=== PATIENT | female | born 1930 | race Caucasian/White ===

== ENCOUNTER 2016-07-06 09:51 | Inpatient (IN) | payer OTHER ==
[2016-06-28 12:38] VITALS: BMI 30.9
[2016-07-06] MEDS ORDERED: GABAPENTIN 300 MG CAPSULE (FP) ONE (11:22)
[2016-07-06] MEDS ORDERED: oxyCODONE HCL 10 MG SUSTAINED ACTING TABLET ONE (11:22)
[2016-07-06] MEDS ORDERED: CELECOXIB 200 MG CAPSULE ONE (11:22)
[2016-07-06] MEDS ORDERED: BUPIVACAINE HCL/PF (5 MG/ML) 30 ML VIAL IJ ONE (12:20)
[2016-07-06] MEDS ORDERED: DEXAMETHASONE SOD PHOSPHATE/PF 10 MG/ML SDV ONE (12:20)
[2016-07-06] MEDS ORDERED: MIDAZOLAM HCL 2 MG/2 ML SINGLE DOSE VIAL ONE (12:20)
[2016-07-06] MEDS ORDERED: ROPIVICAINE 0.2%/MORPH PF/KETOROLAC - 51ML DISP.SYRINGE IA ONE (12:43)
[2016-07-06] MEDS ORDERED: TRANEXAMIC ACID 1000 MG/10 ML VIAL ONE (12:43)
[2016-07-06] MEDS ORDERED: BUPIVACAINE HCL/PF 0.5% (5MG/ML) 10 ML VIAL ONE (12:58)
[2016-07-06] MEDS ORDERED: oxyCODONE HCL 5 MG TABLET PO PRN (14:42)
[2016-07-06] MEDS ORDERED: ONDANSETRON 4 MG/2 ML VIAL IVPUSH PRN (14:42)
[2016-07-06] MEDS ORDERED: ROPIVACAINE 0.2% 400ML 400 ML ML NR ONE (14:42)
[2016-07-06] MEDS ORDERED: LACTATED RINGERS SOLUTION 1,000 ML IV SCH ×2 (14:45→18:30)
[2016-07-06] MEDS ORDERED: ACETAMINOPHEN INJECTION 100 ML IVPB ONE (16:29)
[2016-07-06] MEDS: ACETAMINOPHEN 1000 MG/100 ML VIAL (NON FORMULARY) IVPB ONE ×2 (16:30→18:22)
[2016-07-06] MEDS ORDERED: TRANEXAMIC ACID 1000 MG/10 ML VIAL IVPB ONE (18:15)
[2016-07-06] MEDS: ACETAMINOPHEN 325 MG TABLET (FP) PO SCH ×2 (18:23→21:33)
[2016-07-06] MEDS ORDERED: CEFAZOLIN 2 GM/D5W 50 ML IVPB SCH (18:30)
--- NOTE | 2016-07-06 20:12 | CONSULT ---
Consult Consult Specialty:: Hospital Medicine Referred by:: Dr. Porter Reason for Consultation:: s/p R-TKR - History of Present Illness Chief Complaint: right knee pain History of Present Illness: This is a 85 y/o woman with a past medical history of Hypertension, Hyperlipidemia, GERD, Knee DJD, Shingles, Uterine Ca, Obesity. s/p R-TKR, POD # 0. At bedside, AAOx3. Patient reports mild pain to right knee. Patient reports having full sensation of lower extremities. Patient reports no void, no flatulence. Patient denies, fever, chills, cough, SOB, CP, AP, N/V/D. 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: No: Alzheimer's, CVA, Dementia, Migraine, Multiple Sclerosis, Peripheral Neuropathy, Parkinson's, Seizure, Syncope, TIA, Vertigo, Other Cardio/Vascular: Yes: HTN, Hyperlipdemia Pulmonary: No: Asthma, Bronchitis, Cancer, COPD, O2 Dependent, Pneumonia, Previously Intubated, Pulmonary Embolus, Pulmonary Fibrosis, Sleep Apnea, Other Gastrointestinal: Yes: GERD Hepatobiliary: No: Cirrhosis, Cholelithiasis, Cholecystitis, Choledocholithiasis , Hepatitis A, Hepatitis B, Hepatitis C, Other Renal/: No: Renal Failure, Renal Inusuff, BPH, Cancer, Hematuria, Hemodialysis , Neurogenic Bladder, Renal Calculi, UTI, Other Reproductive: Yes: Postmenopausal, Other (Uterine Ca) ...: No Heme/Onc: No: Anemia, B12 Deficiency, Bleeding Disorder, Cancer, Current Chemotherapy, Current Radiation Therapy, Hemochromatosis, Hypercoaguable State, Myeloproliferative Synd, Sickle Cell Disease, Sickle Cell Trait, Thrombocytopenia, Other Infectious Disease: Yes: Herpes Zoster Psych: No: Addictions, Anxiety, Bipolar, Depression, Panic, Psychosis, Schizophrenia, Other Rheumatology: No: Fibromyalgia, Gout, Lupus, Rheumatoid Arthritis, Sarcoidosis, Vasculitis, Other ENT: No: Allergic Rhinitis, Sinusitis, Other Endocrine: No: Avoyelles's Disease, Florin's Disease, Diabetes Insipidus, Diabetes Mellitus, Hyperparathyroidism, Hyperthyroidism, Hypothyroidism, Osteopenia, SIADH, Other Dermatology: No: Basal Cell, Cellulitis, Eczema, Melanoma, Psoriasis, Squamous Cell, Other - Past Surgical History Past Surgical History: Yes: Arthrosocopy (left knee), Hysterectomy - Alcohol/Substance Use Hx Alcohol Use: Yes ("NOW AND THEN") History of Substance Use: reports: None - Smoking History Smoking history: Never smoked Have you smoked in the past 12 months: No - Social History Usual Living Arrangement: With Spouse ADL: Independent History of Recent Travel: No Home Medications - Allergies Allergies/Adverse Reactions: Allergies Allergy/AdvReac Type Severity Reaction Status Date / Time No Known Drug Allergies Allergy Verified 06/28/16 12:12 - Home Medications Home Medications: Ambulatory Orders Amlodipine Besylate 10 mg PO DAILY 06/28/16 Aspirin [Ecotrin] 81 mg PO DAILY 06/28/16 Gluc Jackson/Chondro Jackson A/Vit C/Mn [Glucosamine 1,500 Complex Cp] 1 each PO DAILY Lisinopril [Prinivil -] 40 mg PO DAILY 06/28/16 Metoprolol Succinate [Toprol Xl] 50 mg PO DAILY 06/28/16 Family Disease History - Family Disease History Family Disease History: CA: Mother (Bone), Other: Father (Sepsis) Review of Systems - Review of Systems Musculoskeletal: reports: Extremity Pain (right knee) Physical Exam Vital Signs: Vital Signs Temperature 97.6 F 07/06/16 17:49 Pulse Rate 61 07/06/16 17:49 Respiratory Rate 20 07/06/16 19:55 Blood Pressure 117/63 07/06/16 17:49 O2 Sat by Pulse Oximetry (%) 96 07/06/16 19:55 Constitutional: Yes: Well Nourished, No Distress, Calm, Obese Eyes: Yes: WNL, Conjunctiva Clear, PERRL HENT: Yes: WNL, Atraumatic, Normocephalic Neck: Yes: WNL, Supple, Trachea Midline Cardiovascular: Yes: WNL, Regular Rate and Rhythm, S1, S2 Respiratory: Yes: WNL, Regular, CTA Bilaterally Gastrointestinal: Yes: Normal Bowel Sounds, Soft, Abdomen, Obese ...Rectal Exam: Yes: Deferred Renal/: Yes: WNL Breast(s): Yes: WNL Musculoskeletal: Yes: Joint Swelling (right knee), Other Extremities: Yes: WNL Edema: No Peripheral Pulses WNL: Yes Wound/Incision: Yes: Dressing Dry and Intact Neurological: Yes: WNL, Alert, Oriented, Cran Nerves II-XII Intact ...Motor Strength: LUE, LLE, RUE Psychiatric: Yes: WNL, Alert, Oriented Problem List - Problems (1) Status post right knee replacement Code(s): Z96.651 - PRESENCE OF RIGHT ARTIFICIAL KNEE JOINT (2) HTN (hypertension) Code(s): I10 - ESSENTIAL (PRIMARY) HYPERTENSION (3) HLD (hyperlipidemia) Code(s): E78.5 - HYPERLIPIDEMIA, UNSPECIFIED (4) GERD (gastroesophageal reflux disease) Code(s): K21.9 - GASTRO-ESOPHAGEAL REFLUX DISEASE WITHOUT ESOPHAGITIS (5) DJD (degenerative joint disease) of knee Code(s): M17.10 - UNILATERAL PRIMARY OSTEOARTHRITIS, UNSPECIFIED KNEE (6) History of shingles Code(s): Z86.19 - PERSONAL HISTORY OF OTHER INFECTIOUS AND PARASITIC DISEASES (7) Obesity (BMI 30.0-34.9) Code(s): E66.9 - OBESITY, UNSPECIFIED (8) History of uterine cancer Code(s): Z85.42 - PERSONAL HISTORY OF MALIGNANT NEOPLASM OF OTH PRT UTERUS (9) DVT prophylaxis Code(s): OUE7168 - Assessment/Plan This is a 85 y/o woman s/p R-TKR, POD #0. Plan: 1. Continue Ortho Regimen 2. HTN: Monitor BP, continue home meds, monitor renal function 3. HLD: Continue Statin 4. GERD: Continue PPI 5. PT 6. Monitor CBC, BMP 7. Continue DVT/PPI prophylaxis 8. Spirometry Visit type - Emergency Visit Emergency Visit: No - New Patient This patient is new to me today: Yes Date on this admission: 07/06/16 - Critical Care Critical Care patient: No
[2016-07-06] MEDS: ASCORBIC ACID 500 MG TABLET (FP) PO SCH (21:31)
[2016-07-06] MEDS: CEFAZOLIN 2 GM/D5W 50 ML IVPB SCH (21:31)
[2016-07-06] MEDS: FERROUS SO4 325 MG TABLET (FP) PO SCH (21:31)
[2016-07-06] MEDS ORDERED: oxyCODONE HCL 10 MG SUSTAINED ACTING TABLET PO SCH (22:00)
[2016-07-07] MEDS: ACETAMINOPHEN 325 MG TABLET (FP) PO SCH ×4 (02:23→21:28)
[2016-07-07] MEDS: CEFAZOLIN 2 GM/D5W 50 ML IVPB SCH (06:02)
[2016-07-07] MEDS: ASPIRIN 325 MG TABLET PO SCH ×2 (08:33→21:28)
[2016-07-07 09:04] LABS: ANION GAP 10 (8-16); CALCIUM 9.9 mg/dl (8.4-10.2); CO2 23 mmol/L (22-28); CREATININE 0.6 mg/dl (0.6-1.3); GLUCOSE,RANDOM 148 mg/dl (74-106)
[2016-07-07] MEDS: FERROUS SO4 325 MG TABLET (FP) PO SCH ×2 (10:01→21:28)
[2016-07-07] MEDS: CELECOXIB 200 MG CAPSULE PO SCH (10:01)
[2016-07-07] MEDS: ASCORBIC ACID 500 MG TABLET (FP) PO SCH ×2 (10:02→21:28)
[2016-07-07] MEDS: LISINOPRIL 20 MG TABLET (FP) PO SCH (10:02)
[2016-07-07] MEDS: METOPROLOL TARTRATE 50 MG TABLET (FP) PO SCH (10:30)
[2016-07-07 11:20] LABS: MCHC 34.4 g/dl (32.0-36.0); MEAN CELL VOLUME 93.1 fl (80-96); PLATELET COUNT 225 K/MM3 (134-434); RDW 13.2 % (11.6-15.6); WHITE BLOOD COUNT 17.3 K/mm3 (4.0-10.8)
--- NOTE | 2016-07-07 13:14 | PN ---
Physical Exam: SUBJECTIVE: Patient seen and examined, reports feeling well, reports minimal pain to the right lower extremity, denies any paresthesia to the extremity, denies any chest pain or shortness of breath. OBJECTIVE:This is a 85 y/o woman with a past medical history of Hypertension, Hyperlipidemia, GERD, Knee DJD, Shingles, Uterine Ca, Obesity. s/p R-TKR, POD # 1 (Bavaro). Vital Signs Period Temp Pulse Resp BP Sys/Mitchell Pulse Ox Last 24 Hr 97 F-98 F 56-68 9-20 99-124/52-90 95-98 GENERAL: The patient is obese, awake, alert, and fully oriented, in no acute distress. HEAD: Normal with no signs of trauma. EYES: PERRL, extraocular movements intact, sclera anicteric, conjunctiva clear. No ptosis. ENT: Ears normal, nares patent, oropharynx clear without exudates, moist mucous membranes. NECK: Trachea midline, full range of motion, supple. LUNGS: Breath sounds equal, clear to auscultation bilaterally, no wheezes, no crackles, no accessory muscle use. HEART: Regular rate and rhythm, S1, S2 without murmur, rub or gallop. ABDOMEN: Soft, nontender, nondistended, normoactive bowel sounds, no guarding, no rebound, no hepatosplenomegaly, no masses. EXTREMITIES: 2+ pulses, warm, well-perfused, no edema. RIGHT LOWER EXTREMITY: dressing to anterior knee, CDI, less than 3 second capillary refill, +3 pedal pulse NEUROLOGICAL: Cranial nerves II through XII grossly intact. Normal speech, gait not observed. PSYCH: Normal mood, normal affect. SKIN: Warm, dry, normal turgor, no rashes or lesions noted Laboratory Results - last 24 hr 07/07/16 07/07/16 06:00 08:30 WBC 17.3 H D RBC 3.85 Hgb 12.3 D Hct 35.9 MCV 93.1 MCHC 34.4 RDW 13.2 Plt Count 225 MPV 10.0 Sodium 138 Potassium 4.2 Chloride 105 Carbon Dioxide 23 Anion Gap 10 BUN 16 Creatinine 0.6 Random Glucose 148 H D Calcium 9.9 Active Medications Generic Name Dose Route Start Last Admin Trade Name Freq PRN Reason Stop Dose Admin Acetaminophen 650 mg 07/06/16 14:45 07/07/16 08:33 Tylenol - PO 07/09/16 14:44 650 mg Q6H ROSALBA Administration Ascorbic Acid 500 mg 07/06/16 22:00 07/07/16 10:02 Vitamin C - PO 500 mg BID ROSALBA Administration Aspirin 325 mg 07/07/16 08:00 07/07/16 08:33 Asa - PO 325 mg BID ROSALBA Administration Celecoxib 200 mg 07/07/16 10:00 07/07/16 10:01 Celebrex - PO 200 mg DAILY ROSALBA Administration Fentanyl 50 mcg 07/06/16 14:42 Sublimaze Injection - IVPUSH 07/09/16 14:43 [id number] PRN PAIN Ferrous Sulfate 325 mg 07/06/16 22:00 07/07/16 10:01 Feosol - PO 325 mg BID ROSALBA Administration Lactated Ringer's 1,000 mls @ 125 mls/hr 07/06/16 14:45 07/06/16 18:22 Lactated Ringers Solution IV Not Given ASDIR ROSALBA Lactated Ringer's 1,000 mls @ 125 mls/hr 07/06/16 18:30 07/06/16 18:44 Lactated Ringers Solution IV Not Given ASDIR ROSALBA Lisinopril 40 mg 07/07/16 10:00 07/07/16 10:02 Prinivil PO 40 mg DAILY ROSALBA Administration Metoprolol Tartrate 50 mg 07/07/16 10:00 07/07/16 10:30 Lopressor - PO 50 mg DAILY ROSALBA Administration Oxycodone HCl 5 mg 07/06/16 14:42 Roxicodone - PO 07/09/16 14:42 Q4H PRN PAIN Oxycodone HCl 10 mg 07/06/16 14:42 Roxicodone - PO 07/09/16 14:43 Q4H PRN PAIN ASSESSMENT/PLAN: 1) MS: s/p right TKR, POD #1 - pt as per ortho - prn pain medication - incentive spriometer 2) Card hypertension - b/p at goal, continue lopressor and lisinopril hyperlipidemia - continue statin 3) GI GERD - start protonix f/e/n - low sodium diet ppx - asa - scd/marcy - pt Will follow thank you for this consultative opportunity.
[2016-07-07] MEDS: PANTOPRAZOLE 40 MG TABLET (FP) PO SCH (14:21)
[2016-07-07] MEDS: oxyCODONE HCL 5 MG TABLET PO PRN (21:28)
[2016-07-08] MEDS: ACETAMINOPHEN 325 MG TABLET (FP) PO SCH ×3 (03:01→14:17)
[2016-07-08 06:22] VITALS: PULSE 68
[2016-07-08 06:28] VITALS: BP 111/57; TEMP 97.9
[2016-07-08] MEDS: oxyCODONE HCL 5 MG TABLET PO PRN (06:46)
[2016-07-08 08:08] LABS: MCH 31.3 pg (25.7-33.7); MCHC 33.5 g/dl (32.0-36.0); MEAN CELL VOLUME 93.4 fl (80-96); MEAN PLT VOLUME 9.4 fl (7.5-11.1); PLATELET COUNT 185 K/MM3 (134-434); RDW 13.4 % (11.6-15.6); WHITE BLOOD COUNT 9.7 K/mm3 (4.0-10.8)
[2016-07-08] MEDS: ASCORBIC ACID 500 MG TABLET (FP) PO SCH (09:46)
[2016-07-08] MEDS: LISINOPRIL 20 MG TABLET (FP) PO SCH (09:46)
[2016-07-08] MEDS: ASPIRIN 325 MG TABLET PO SCH (09:46)
[2016-07-08] MEDS: FERROUS SO4 325 MG TABLET (FP) PO SCH (09:47)
[2016-07-08] MEDS: PANTOPRAZOLE 40 MG TABLET (FP) PO SCH (09:47)
[2016-07-08] MEDS: CELECOXIB 200 MG CAPSULE PO SCH (09:47)
[2016-07-08] MEDS: METOPROLOL TARTRATE 50 MG TABLET (FP) PO SCH (09:47)
--- NOTE | 2016-07-08 12:06 | OP ---
DATE OF OPERATION: 07/06/2016 SURGEON: Quinten Krishna MD ANESTHESIOLOGIST: Rolf Pastor MD and Danyell Ba MD ANESTHESIA: Spinal with an adductor canal block with an indwelling catheter. PREOPERATIVE DIAGNOSIS: Severe right knee osteoarthritis with varus deformity, flexion contracture. 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 BLOOD LOSS: Approximately 150 mL. Cefzil was given preoperatively for prophylaxis against infection. An additional 1 g of Cefzil was given at the time of wound closure, 1 g of tranexamic acid was given preoperatively. A second gram was given at the time of wound closure. A third was instilled into the wound. HARDWARE USED: [employer] PFC sigma PCL retaining knee with a size 4 narrow PressFit femur, size 3 cemented tibial component, and 10-mm polyethylene tray. One bag of bone cement was used. Patella was left on the surface. Mixture of Duramorph, Toradol, and bupivacaine were instilled into the knee at the conclusion of the procedure. INDICATIONS: The patient is an 85-year-old female with longstanding history of knee osteoarthritis who has had extensive conservative treatment and has reached the point where her quality of life is quite poor. She is having severe discomfort with activity and pain and severe discomfort with activities of daily living. She cannot walk any meaningful distance. We had discussed treatment options including additional conservative treatment such as injection therapy, medications, use of a cane or walker, physical therapy versus surgical intervention. After a thorough discussion with the patient, she wished to proceed with knee replacement surgery. We explained the risks to include, but not be limited to infection, stiffness, continued pain, chance that should she develop an infection it would be a complete disaster, necessitating removing her knee replacement and placing her on long-term IV antibiotics and the chance that should she have an infection that is not curable, she could be left on chronic antibiotic suppression or should she develop a life-threatening infection may require an amputation, the chance that she could have a blood clot that could spread from her legs to her lungs and even cause . This can occur despite DVT prophylaxis with medication, ambulation, and sequential compression devices. The chance that her knee replacement may loosen up in its intended lifespan and may need to be redone was discussed. Patient understands this. She has identified her right knee as the operative site, which was confirmed by the operating room staff. She agrees to proceed with the planned procedure. DESCRIPTION OF PROCEDURE: After administration of regional anesthetic by the anesthesiologist in the preoperative holding area, the patient was brought to the operating room where spinal anesthetic was administered by the anesthesiologist. The patient's right leg was then prepped and draped in the usual sterile manner. Tourniquet was applied, but prior to sterile prepping and draping, but was not used during the procedure. Standard midline incision approximately 15 cm in length was made, starting just superior to the superior pole of the patella, extending midline and down the anterior aspect of her knee to just past the tibial tubercle. The incision was carried down through the subcutaneous tissues onto the extensor mechanism using the electrocautery device and device to maintain hemostasis throughout the procedure. The extensor mechanism was then entered proximally in the quadriceps tendon at roughly the junction between the middle and medial thirds of the quadriceps tendon. The incision was carried down to the superior pole of the patella, curving medially around the patella, leaving a small cuff of tissue for later repair and reapproximation of the extensor mechanism. The patella was everted. The patient had obvious severe tricompartmental osteoarthritis with severe varus deformity with a medial more severely affected than the lateral. Menisci were removed. ACL was released. PCL was recessed. All osteophytes were removed. Two sets of 4-mm guide pins were then placed in the medial aspect of the proximal tibia and medial aspect of the distal femur, to which the computer array were then attached. The patient's hips were in rotation and bony anatomy was entered into the computer navigation device. She had roughly 15 degree flexion contracture and roughly 9 degrees of varus. The tibia and then the femur were machined to correct the patient's varus deformity and flexion contracture. Trial size 4 narrow femur and size 3 tibia were then impacted in place with a trial 10-mm polyethylene spacer. The patient had full and easy extension, full and easy flexion with balanced flexion and extension gaps with good tracking of the patella with the trial components. The trial components were removed. On bag of [employer] bone cement was mixed in a vacuum mixing bowl and the exposed bony cancellous surfaces were cleaned using jet lavage. The tibial component was pre-coated with bone cement as well as bone cement being finger pressurized into the exposed bony cancellous surfaces, which have been cleaned with the jet lavage. The tibial component was then impacted in place and then the femoral component was then impacted in place and held in extension with 10-mm polyethylene space while the cement had hardened. The knee was then taken through range of motion and had full and easy extension, full and easy flexion with balanced flexion and extension gaps and neutral varus and valgus alignment. The trial components were then removed. The leg was then irrigated with copious amounts of antibiotic normal saline solution. Excess bone cement and bone debris were removed. The final polyethylene liner was then impacted in place and found to have equal patella tracking stability and alignment to that of the trial. Dilute betadine solution was instilled in the wound and allowed to sit for 3 minutes. This was then evacuated and the wound was once again irrigated with copious amounts of antibiotic normal saline solution. The extensor mechanism was then closed with interrupted [id number] No.1 Vicryl sutures followed by a No. Stratafix suture, sutured with the knee in maximal flexion. The aforementioned local was instilled in the knee joint and the subcutaneous tissues were closed with 2-0 Vicryl sutures to reapproximate the skin edges and a running 2-0 Stratafix suture with the knee maximally flexed. Wound was then further closed with Dermabond. After the Dermabond had hardened, Aquacel dressing was then applied. The pin sites were also closed with Dermabond. Thigh-high AZALEA hose stockings were then placed on the patient's leg. She was awoken and transported to the recovery room in stable condition, having tolerated the procedure without incident. During the procedure, the patient had thigh-high AZALEA stockings and sequential compression devices on her nonoperative leg. For DVT prophylaxis we are going to have early ambulation, SCDs, as well as aspirin for 4 weeks for DVT prophylaxis. We are going to try to avoid using a Ayers catheter for fear of causing urinary tract infections and try to present periprosthetic infection. We are going to discontinue prophylactic antibiotics within 24 hours. QUINTEN KRISHNA M.D. [id number]
--- NOTE | 2016-07-11 15:32 | PATH ---
Surgical Pathology Report Patient Name: FLAVIO MO Med. Rec. #: [id number] /Age/Gender: 1930 (Age: 85) / F Account: [id number] Location: [facility] Taken: 07/06/2016 Received: 07/06/2016 Reported: 07/11/2016 Physicians: Jaison Porter M.D. Specimen(s) Received BONE RIGHT KNEE Clinical History Unilateral primary osteoarthritis Final Diagnosis BONE, RIGHT KNEE, TOTAL KNEE REPLACEMENT: DEGENERATIVE JOINT DISEASE. Electronically Signed Lacey Walker M.D. Gross Description Received in formalin labeled "bone right knee," is 11.0 x 9.5 x 1.7 cm aggregate of multiple cortez, irregular portions of bone and soft tissue. The tibial plateau measures 7.8 x 5.4 x 1.7 cm. There are multiple areas of eburnation present, measuring up to 4 cm in greatest dimension. The remaining articular surfaces are cortez-yellow and diffusely granular. The underlying trabecular bone is yellow and hard. Modeling Analyst sections are submitted in one cassette, following decalcification. /07/07/201607/07/2016
== END 2016-07-08 16:56 | disposition home or self-care (01) | DRG 470 ==
LOC: FM/S 09:51
PROVIDERS: ADMIT Orthopaedic Surgery; ATTEND Orthopaedic Surgery
PROC: 0SRC0J9 Replacement of Right Knee Joint with Synthetic Substitute, Cemented, Open Approach (ICD-10-PCS; principal; 2016-07-06 13:59)
DX: M17.11 Unilateral primary osteoarthritis, right knee (principal); I10 Essential (primary) hypertension; E78.5 Hyperlipidemia, unspecified; K21.9 Gastro-esophageal reflux disease without esophagitis; Z85.42 Personal history of malignant neoplasm of other parts of uterus; E66.8 Other obesity; Z68.30 Body mass index [BMI] 30.0-30.9, adult; Z86.19 Personal history of other infectious and parasitic diseases
CPT/HCPCS: 36415; 73560-TC-RT; 80048; 85027; 88304-TC; 88311-TC; 94010; 94760; 97116-GP; 97162; J3490

== ENCOUNTER 2019-01-22 16:34 | Emergency (ER) | payer OTHER ==
[2019-01-22 16:38] VITALS: BP 119/63; PULSE 86; TEMP 97.9; BMI 25.7
--- NOTE | 2019-01-22 17:02 | PDOC ---
History of Present Illness - General Chief Complaint: Pain, Acute Stated Complaint: LEFT UPPER LEG PAIN Time Seen by Provider: 01/22/19 16:39 History Source: Patient Exam Limitations: No Limitations - History of Present Illness Initial Comments: 01/22/19 17:01 88y F presents with R thigh pain. Pt notes that She had a mechanical fall several weeks ago since then she has had intermittent left thigh pain That is typically worse in the morning when she wakes up, During the day the pain seems to go away and she is able to ambulate more easily with her walker. The patient denies any numbness, tingling, hip pain, knee pain, Fever, chills. Pt was evaluated by dr. savage who sent her to the ED for evaluation. PMHx: uterine ca, htn GENERAL: The patient is awake, alert, and fully oriented, Nontoxic - in no acute distress. HEAD: Normocephalic, atraumatic. NECK: Normal range of motion, supple BACK No focal bony tenderness along midline in cervical spine EXTREMITIES: Normal range of motion, no edema. No bruising or focal bony tenderness noted on hips, thighs, knees, normal range of motion in the hips and knees. NEUROLOGICAL: No facial assymetry, Normal speech, PSYCH: Normal mood, normal affect. SKIN: Warm, Dry, normal turgor, Will obtain x-ray to rule out fracture The patient declines any pain medicine so that she took Tylenol about 2 hours ago and has helped her pain. Past History - Past Medical History Allergies/Adverse Reactions: Allergies Allergy/AdvReac Type Severity Reaction Status Date / Time No Known Drug Allergies Allergy Verified 01/22/19 16:35 Home Medications: Ambulatory Orders Amlodipine Besylate 10 mg PO DAILY 06/28/16 Aspirin [Ecotrin] 81 mg PO DAILY 06/28/16 Gluc Jackson/Chondro Jackson A/Vit C/Mn [Glucosamine 1,500 Complex Cp] 1 each PO DAILY Lisinopril [Prinivil -] 40 mg PO DAILY 06/28/16 Metoprolol Succinate [Toprol Xl] 50 mg PO DAILY 06/28/16 Aspirin [ASA -] 325 mg PO DAILY #30 tablet 07/08/16 Aspirin [ASA -] 325 mg PO ONCE #1 tablet 07/08/16 Anemia: No Asthma: No Cancer: Yes (UTERINE CA 1975) Cardiac Disorders: No CVA: No COPD: No CHF: No Dementia: No Diabetes: No GI Disorders: No Disorders: No (INCT) HTN: Yes Hypercholesterolemia: No Liver Disease: No Seizures: No Thyroid Disease: No - Surgical History Abdominal Surgery: No Appendectomy: No Cardiac Surgery: No Cholecystectomy: No Lung Surgery: No Neurologic Surgery: No Orthopedic Surgery: Yes (LEFT LEG SX 1998) - Psycho Social/Smoking Cessation Hx Smoking History: Never smoked Have you smoked in the past 12 months: No Hx Alcohol Use: Yes ("NOW AND THEN") Drug/Substance Use Hx: No Substance Use Type: Alcohol Hx Substance Use Treatment: No *Physical Exam - Vital Signs Last Vital Signs Temp Pulse Resp BP Pulse Ox 97.9 F 86 19 119/63 99 01/22/19 16:34 01/22/19 16:34 01/22/19 16:34 01/22/19 16:34 01/22/19 16:34 Medical Decision Making - Medical Decision Making 01/22/19 17:51 The patient's femur x-ray and left hip and pelvis appear negative on my wet read. Will discharge patient to follow-up with Dr. Savage I discussed the physical exam findings, ancillary test results and final diagnoses with the patient. I answered all of the patient's questions. The patient was satisfied with the care received and felt comfortable with the discharge plan and treatment plan. The patient will call their primary care physician within 24 hours to arrange follow-up and will return to the Emergency Department with any new, persistent or worsening symptoms. Discharge - Discharge Information Problems reviewed: Yes Clinical Impression/Diagnosis: Leg pain, left Condition: Stable Disposition: HOME - Admission No - Follow up/Referral Referrals: Donnie Savage MD [Primary Care Provider] - - Patient Discharge Instructions Patient Printed Discharge Instructions: DI for Leg Pain Additional Instructions: Return to the emergency department immediately with ANY new, persistent or worsening symptoms. Take Tylenol for your pain. You MUST call and follow up with your doctor in 3-4 days for further evaluation of your symptoms. Results were discussed with you. Please make sure your doctor reviews the results of your emergency evaluation. Your Emergency Department visit is not complete without a follow up with your doctor. If you had any xrays during your visit, it was read preliminarily by myself, a Radiologist will review it and if there are any additional findings we will call you. Print Language: SLOVENIAN - Post Discharge Activity
== END 2019-01-22 18:05 | disposition home or self-care (01) ==
LOC: FER 16:34
DX: M79.651 Pain in right thigh (principal); I10 Essential (primary) hypertension; K92.9 Disease of digestive system, unspecified; Z85.42 Personal history of malignant neoplasm of other parts of uterus
CPT/HCPCS: 73523-TC-FY; 73552-TC-LT-FY; 99282-25

== ENCOUNTER 2019-10-16 21:44 | Inpatient (IN) | payer OTHER ==
--- NOTE | 2019-10-16 22:28 | PDOC ---
History of Present Illness - General Chief Complaint: Diarrhea Stated Complaint: "i have diarrhea" Time Seen by Provider: 10/16/19 21:46 - History of Present Illness Initial Comments: 10/16/19 22:31 This 89-year-old woman with a history of HTN/uterine Ca (1975)/L TKR(2016) presents with intermittent, usually postprandial, diarrhea which patient describes as sometimes having red blood (no mucus) within the bowel movement for the last several weeks. Tonight, a few hours prior to presentation, the patient had a very large liquid bowel movement which leaked around the disposable diapers she wears. No red blood or mucus noted tonight. she denies nausea/vomiting. She has had no significant abdominal pain associated with any of the episodes of diarrhea. No fever or chills noted. Patient states that over the last several months, she has had decreased appetite and she is lost approximately 40 pounds over the last year. No previous history of any gastrointestinal issues. She denies ever having colonoscopy. She states that she has been somewhat lightheaded in the mornings for the last several months but this resolves quickly. She denies unusual weakness, chest pain, shortness of breath. 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 Medications as noted below No known drug allergies Non-smoker/small amount of daily wine but no other alcohol use PMD Dr Newby Past History - Medical History Allergies/Adverse Reactions: Allergies Allergy/AdvReac Type Severity Reaction Status Date / Time No Known Drug Allergies Allergy Verified 10/16/19 21:46 Home Medications: Ambulatory Orders Amlodipine Besylate 10 mg PO DAILY 06/28/16 Aspirin [Ecotrin] 81 mg PO DAILY 06/28/16 Lisinopril [Prinivil -] 40 mg PO DAILY 06/28/16 Metoprolol Succinate [Toprol Xl] 50 mg PO DAILY 06/28/16 Anemia: No Asthma: No Cancer: Yes (UTERINE CA 1975) Cardiac Disorders: No CVA: No COPD: No CHF: No Dementia: No Diabetes: No GI Disorders: No Disorders: No (INCT) HTN: Yes Hypercholesterolemia: No Liver Disease: No Seizures: No Thyroid Disease: No - Surgical History Abdominal Surgery: No Appendectomy: No Cardiac Surgery: No Cholecystectomy: No Lung Surgery: No Neurologic Surgery: No Orthopedic Surgery: Yes (LEFT LEG SX 1998) - Psycho-Social/Smoking History Smoking History: Never smoked Have you smoked in the past 12 months: No - Substance Abuse Hx (Audit-C & DAST Scrn) How often the patient has a drink containing alcohol: Never Score: In Men: 4 or > Positive; In Women: 3 or > Positive: 0 Screen Result (Pos requires Nsg. Audit-10AR): Negative Review of Systems - Review of Systems Able to Perform ROS?: Yes Comments:: 12 point review of systems is negative except for what is noted in the history of present illness *Physical Exam - Vital Signs Last Vital Signs Temp Pulse Resp BP Pulse Ox 98.8 F 80 18 127/69 100 10/16/19 21:47 10/16/19 21:47 10/16/19 21:47 10/16/19 21:47 10/16/19 21:47 - Physical Exam GENERAL: Elderly female, alert and oriented x3, in no acute distress HEAD: Normal with no signs of trauma. EYES: PERRLA, EOMI, sclera anicteric, conjunctiva clear. ENT: Ears normal, nares patent, oropharynx clear without exudates. Dry mucous membranes. NECK: Normal range of motion, supple without lymphadenopathy, JVD, or masses. LUNGS: Breath sounds equal, clear to auscultation bilaterally. No wheezes, and no crackles. HEART:Regular rate and rhythm, normal S1 and S2 without murmur, rub or gallop. ABDOMEN:.normal bowel sounds No guarding,tenderness or rebound.No masses No distention. RECTAL: External hemorrhoidal tags; no other perianal abnormalities; no palpable internal masses; small amount of surinder, heme positive stool otherwise empty ampulla EXTREMITIES: Normal range of motion, no edema. No clubbing or cyanosis. No erythema, or tenderness. NEUROLOGICAL: Cranial nerves II through XII grossly intact. Normal speech. No focal neurological deficits. MUSCULOSKELETAL: Back non-tender to palpation, no CVA tenderness SKIN: Warm, Dry, normal turgor, no rashes or lesions noted. ED Treatment Course - LABORATORY CBC & Chemistry Diagram: 10/16/19 22:35 10/16/19 22:27 Medical Decision Making - Medical Decision Making Work-up notable for normal hemoglobin/hematocrit 11.4/34.7 and remainder of the CBC normal. BUN is 23 with a creatinine of 0.6. Electrolytes and LFTs are all within normal limits. Troponin is not elevated at less than 0.03. Twelve-lead electrocardiogram was performed: Normal sinus rhythm at 73 bpm; there is right bundle branch block but no other abnormalities of waveforms. Intervals and axis are normal. No evidence of acute ST or T wave abnormalities. No evidence of acute cardiac arrhythmia. Case discussed with Dr. Alvarenga of GI staff: Patient will be admitted for observation and plan for colonoscopy. Stool sample should be sent for culture and sensitivity. 10/17/19 00:[address] Gleason from [facility]. Patient will be admitted to [facility]. COVID-19 swab performed Portable chest x-ray performed: Preliminary interpretationsmall area of atelectasis right base, no infiltrates, effusion or masses seen, slight flattening of the diaphragm bilaterally, cardiac silhouette appears normal Discharge - Discharge Information Problems reviewed: Yes Clinical Impression/Diagnosis: Lower GI bleed, Chronic diarrhea Condition: Guarded - Admission Yes - Follow up/Referral - Patient Discharge Instructions - Post Discharge Activity
[2019-10-16] MEDS ORDERED: SODIUM CHLORIDE 500 ML IV STA (22:29)
[2019-10-16 22:55] LABS: BASO % 1.1 % (0-2.0); EOS % 4.7 % (0-4.5); HEMATOCRIT 34.7 % (32.4-45.2); HEMOGLOBIN 11.4 GM/dl (10.7-15.3); LYMPH % 11.8 % (8-40); MCH 29.1 pg (25.7-33.7); MCHC 32.9 g/dl (32.0-36.0); MEAN CELL VOLUME 88.5 fl (80-96); MEAN PLT VOLUME 8.7 fl (7.5-11.1); MONO % 9.7 % (3.8-10.2); NEUT % 72.7 % (42.8-82.8); PLATELET COUNT 288 K/MM3 (134-434); RBC 3.92 M/mm3 (3.60-5.2); RDW 14.8 % (11.6-15.6)
[2019-10-16 23:03] LABS: INR 1.01 (0.82-1.09); PROTHROMBIN TIME (PATIENT) 11.3 SEC (10.2-13.0)
[2019-10-16 23:08] LABS: ALBUMIN 4.2 g/dl (3.4-5.0); BILIRUBIN,TOTAL 0.5 mg/dl (0.2-1); CALCIUM 9.9 mg/dl (8.5-10); CREATININE 0.6 mg/dl (0.55-1.3); POTASSIUM 3.9 mmol/L (3.5-5.1); TOT PROT 6.6 g/dl (6.4-8.2)
[2019-10-17] MEDS ORDERED: ACETAMINOPHEN 325 MG TABLET (FP) PO PRN (00:09)
[2019-10-17] MEDS ORDERED: SODIUM CHLORIDE 1,000 ML IV SCH (00:15)
[2019-10-17] MEDS ORDERED: DEXTROSE 5%-NORMAL SALINE 1,000 ML IV SCH (00:15)
[2019-10-17 01:41] VITALS: BMI 26.2
[2019-10-17 07:45] LABS: RBC 3.48 M/mm3 (3.60-5.2)
[2019-10-17 07:48] LABS: BASO % 1.6 % (0-2.0); EOS % 6.3 % (0-4.5); HEMATOCRIT 30.9 % (32.4-45.2); LYMPH % 23.1 % (8-40); MCH 28.8 pg (25.7-33.7); MCHC 32.4 g/dl (32.0-36.0); MEAN CELL VOLUME 88.6 fl (80-96); MEAN PLT VOLUME 8.4 fl (7.5-11.1); PLATELET COUNT 264 K/MM3 (134-434); RDW 14.6 % (11.6-15.6); WHITE BLOOD COUNT 4.4 K/mm3 (4.0-10.8)
[2019-10-17 08:05] LABS: ALBUMIN 3.4 g/dl (3.4-5.0); BILIRUBIN,TOTAL 0.5 mg/dl (0.2-1); CALCIUM 8.9 mg/dl (8.5-10); CREATININE 0.5 mg/dl (0.55-1.3); MAGNESIUM 1.8 mg/dL (1.8-2.4); PHOSPHOROUS 2.8 mg/dl (2.5-4.9); POTASSIUM 3.5 mmol/L (3.5-5.1); TOT PROT 5.6 g/dl (6.4-8.2)
[2019-10-17 08:17] LABS: INR 1.07 (0.82-1.09)
--- NOTE | 2019-10-17 09:06 | PN ---
Progress Note (short form) - Note Progress Note: Patient seen and labs reviewed; consult dictated. Patient is an 89 yo female with a long (>1 year) history of occasional loose stool ?diarrhea. No recent change in weight, appetite and no fever, chills, N/V. Had diarrhea last night after eating pasta with sauce - son/family upset and patient went to ER and was admitted. No stool since admission and has normal lytes/WBC (has mild anemia). Patient currently feels at baseline without diarrhea or abdominal discomfort and wants to eat/go home. Agreeable to outpatient colonoscopy (await BM to send specimen for culture) Will start on regular diet and arrange outpatient followup.
--- NOTE | 2019-10-17 09:50 | CONS ---
DATE OF CONSULTATION: 10/17/2019 I was asked to evaluate this 89-year-old female admitted with diarrhea. The patient is an 89-year-old female with a history of hypertension, uterine cancer and knee replacement surgery. She has had a 1+ year history of intermittent loose bowel movements. She has not had a workup to date and denies any prior history of colonoscopy. She has maintained her appetite and weight over the past 6 to 12 months. Prior to that time she may have had some weight loss. She states that she generally has good control of her bowel movements, although occasionally has loose stools. She denies seeing any blood in the stool. The evening of admission she had eaten pasta with some tomato sauce and had a large liquid bowel movement with some difficulty getting to the bathroom in time with some soiling of the floor. This was quite upsetting to her family as well as the patient and she ultimately went to the emergency room. She described the stool as being slightly orange in color, but not grossly bloody with clots or black tarry appearance. The patient was seen in the emergency room for the aforementioned complaint. Her blood counts included a white count of 6000, hematocrit of 34.7% with an MCV of 88 and a platelet count of 288,000. Her INR was 1.01 and her chemistries are unremarkable. The patient has not had a bowel movement since admission. She has remained with stable vital signs and afebrile. There have been no stool cultures sent due to the lack of a bowel movement. The patient currently denies any abdominal discomfort, nausea, vomiting, cramps, fever or chills. She has not had any recent travel history or antibiotic use. She has no family history of GI illness or malignancy and, as mentioned, she has not had a colonoscopy to date. The patient states she would like to eat and is anxious to go home to care for her 91-year-old . PHYSICAL EXAMINATION: General: She is a well-developed, well-nourished female with pink conjunctivae. No icterus. Lungs: Grossly clear. Cardiac: Regular rate and rhythm. Abdomen: Soft, flat and nontender with normoactive bowel sounds. LABORATORY: Tests are as above. The patient does have stool Hemoccult-positive testing. An 89-year-old female with chronic intermittent loose stool/diarrhea with a more significant episode the evening of admission, currently without any bowel movement since admission and anxious to go home. Will arrange for an outpatient colonoscopy as patient is agreeable to this plan and will advance diet. Stool cultures can be sent if the patient does have a bowel movement prior to discharge. Recommendations will be made based on her outpatient workup. ROBERT MARAVILLA M.D. [id number]
[2019-10-17 10:36] VITALS: BP 133/80; PULSE 74; TEMP 98.1
[2019-10-17] MEDS ORDERED: POTASSIUM CHLORIDE TABS 20 MEQ TABLET.ER (FP) PO ONE (10:50)
--- NOTE | 2019-10-17 11:02 | DS ---
Physical Exam: SUBJECTIVE: Patient seen and examined OBJECTIVE: Vital Signs Period Temp Pulse Resp BP Sys/Mitchell Pulse Ox Last 24 Hr 98.1 F-98.8 F 68-80 18-18 120-133/60-80 97-100 PHYSICAL EXAM GENERAL: The patient is awake, alert, and fully oriented, in no acute distress. HEAD: Normal with no signs of trauma. EYES: PERRL, extraocular movements intact, sclera anicteric, conjunctiva clear. ENT: Ears normal, nares patent, oropharynx clear without exudates, moist mucous membranes. NECK: Trachea midline, full range of motion, supple. LUNGS: Breath sounds equal, clear to auscultation bilaterally, no wheezes, no crackles, no accessory muscle use. HEART: Regular rate and rhythm, S1, S2 without murmur, rub or gallop. ABDOMEN: Soft, nontender, nondistended, normoactive bowel sounds, no guarding, no rebound, no hepatosplenomegaly, no masses. EXTREMITIES: 2+ pulses, warm, well-perfused, no edema. NEUROLOGICAL: no deficits noted. Normal speech, gait not observed. PSYCH: Normal mood, normal affect. SKIN: Warm, dry, normal turgor, no rashes or lesions noted. LABS Laboratory Results - last 24 hr 10/16/19 10/16/19 10/16/19 22:27 22:27 22:27 WBC RBC Hgb Hct MCV MCH MCHC RDW Plt Count MPV Absolute Neuts (auto) Neutrophils % Lymphocytes % Monocytes % Eosinophils % Basophils % PT with INR 11.3 INR 1.01 Sodium 137 Potassium 3.9 Chloride 105 Carbon Dioxide 25 Anion Gap 7 L BUN 23.0 H Creatinine 0.6 Est GFR (CKD-EPI)AfAm 94.32 Est GFR (CKD-EPI)NonAf 81.38 POC Glucometer Random Glucose 102 Calcium 9.9 Phosphorus Magnesium Total Bilirubin 0.5 AST 18 ALT 16 Alkaline Phosphatase 87 Creatine Kinase 39 Troponin I < 0.03 Total Protein 6.6 Albumin 4.2 TSH Stool Occult Blood 10/16/19 10/16/19 10/17/19 22:35 22:35 06:00 WBC 6.0 RBC 3.92 Hgb 11.4 Hct 34.7 MCV 88.5 MCH 29.1 MCHC 32.9 RDW 14.8 D Plt Count 288 MPV 8.7 Absolute Neuts (auto) 4.3 Neutrophils % 72.7 Lymphocytes % 11.8 Monocytes % 9.7 Eosinophils % 4.7 H Basophils % 1.1 PT with INR INR Sodium 137 Potassium 3.5 Chloride 109 H Carbon Dioxide 23 Anion Gap 5 L BUN 13.0 Creatinine 0.5 L Est GFR (CKD-EPI)AfAm 100.15 Est GFR (CKD-EPI)NonAf 86.41 POC Glucometer Random Glucose 88 Calcium 8.9 Phosphorus 2.8 Magnesium 1.8 Total Bilirubin 0.5 AST 17 ALT 12 L Alkaline Phosphatase 70 D Creatine Kinase Troponin I Total Protein 5.6 L Albumin 3.4 TSH 2.33 Stool Occult Blood Positive 10/17/19 10/17/19 10/17/19 06:26 06:55 06:55 WBC 4.4 RBC 3.48 L Hgb 10.0 L Hct 30.9 L MCV 88.6 MCH 28.8 MCHC 32.4 RDW 14.6 Plt Count 264 MPV 8.4 Absolute Neuts (auto) 2.5 Neutrophils % 58.0 Lymphocytes % 23.1 Monocytes % 11.0 H Eosinophils % 6.3 H Basophils % 1.6 PT with INR 12.0 INR 1.07 Sodium Potassium Chloride Carbon Dioxide Anion Gap BUN Creatinine Est GFR (CKD-EPI)AfAm Est GFR (CKD-EPI)NonAf POC Glucometer 85 Random Glucose Calcium Phosphorus Magnesium Total Bilirubin AST ALT Alkaline Phosphatase Creatine Kinase Troponin I Total Protein Albumin TSH Stool Occult Blood HOSPITAL COURSE: Date of Admission:10/17/19 Date of Discharge: 10/17/19 Minutes to complete discharge: 45 Discharge Summary Problems reviewed: Yes Reason For Visit: CHRONIC DIARRHEA, LOWER GI BLEED. Current Active Problems Chronic diarrhea Rectal bleed (chronic) Procedures: Principal: CXR 10/16/2019. . Single view of the chest has been submitted. Since the prior study of 07/05/2016 again noted is a slight scoliosis with prominent knob, normal hilar and normal heart. The heart is smaller than the earlier exam. There is still some linear scarring or atelectasis in both lung viveros. There is evidence of old rib trauma. An acute chest process is not seen. The angles are sharp. The soft tissues are intact. Correlation recommended. Reported By: Fox Marie MD 10/17/19 0753 Hospital Course: (exerpted from admission note): 89-year-old F with a history of HTN/uterine Ca (1975)/L TKR(2017) presents with intermittent, usually postprandial, diarrhea which patient describes as sometimes having red blood (no mucus) within the bowel movement for the last several weeks. Tonight, a few hours prior to presentation, the patient had a very large liquid bowel movement which leaked around the disposable diapers she wears. No red blood or mucus noted tonight. she denies nausea/vomiting. She has had no significant abdominal pain associated with any of the episodes of diarrhea. No fever or chills noted. Patient states that over the last several months, she has had decreased appetite and she is lost approximately 40 pounds over the last year. No previous history of any gastrointestinal issues. She denies ever having colonoscopy. She states that she has been somewhat lightheaded in the mornings for the last several months but this resolves quickly. She denies unusual weakness, chest pain, shortness of breath. Work-up notable for normal hemoglobin/hematocrit 11.4/34.7 and remainder of the CBC normal. BUN is 23 with a creatinine of 0.6. Electrolytes and LFTs are all within normal limits. Troponin is not elevated at less than 0.03. Twelve-lead electrocardiogram- Normal sinus rhythm at 73 bpm; there is right bundle branch block but no other abnormalities of waveforms. Intervals and axis are normal. No evidence of acute ST or T wave abnormalities. No evidence of acute cardiac arrhythmia. Pt evaluated by GI on the morning of 10/16, and decision made to discharge patient home with planned outpt C-scope. Overnight, pt remained hemodynamically stable. Health Concerns: Patient given sterile container to collect stool specimen for stool cx/ O & P, which should be brought to PCPs office to be sent to lab Plan of Treatment: Follow up with Dr. Newby post discharge Patient will self schedule outpt colonoscopy with Dr. Alvarenga. Resume home meds. Condition: Stable - Instructions Diet, Activity, Other Instructions: Rectal bleeding is when blood passes through your rectum and anus. It can happen with or without a bowel movement. Rectal bleeding may be a sign of a serious problem in your rectum, colon, or upper GI tract. Call your healthcare provider right away if you have any rectal bleeding. Rectal bleeding and GI problems The cause of rectal bleeding may be found in any part of the GI tract. The colon or rectum may be the site of your bleeding problem. Or bleeding may be due to problems farther up the GI tract, such as in the small intestine, duodenum, or stomach. Causes of rectal bleeding These are some possible causes: Hemorrhoids (swollen veins in the rectum and anus) Fissures (tears in or near the anus) Diverticulosis (inflamed pockets in the colon wall) Infection Ischemia (low blood flow) Radiation damage Inflammatory bowel disease (Crohn's disease or ulcerative colitis) Ulcers in the upper GI tract and inflammation of the large intestine Abnormal tissue growths (tumors or polyps) in the GI tract A bulging rectum (also called a rectal prolapse) Abnormal blood vessels in the small intestine or in the colon Common symptoms are: Rectal pain, itching, or soreness Belly pain, including upper belly pain near the stomach (epigastric pain) Small drops of blood that sometimes appear on the stool or toilet paper Stool that looks black or tarry Rectal bleeding can also happen without pain. Referrals: Donnie Newby MD [Primary Care Provider] - Disposition: HOME - Home Medications Comprehensive Discharge Medication List: Ambulatory Orders Amlodipine Besylate 10 mg PO DAILY 06/28/16 Aspirin [Ecotrin] 81 mg PO DAILY 06/28/16 Lisinopril [Prinivil -] 40 mg PO DAILY 06/28/16 Metoprolol Succinate [Toprol Xl] 50 mg PO DAILY 06/28/16 Prescription Drug Monitoring Program (I-STOP) results: I-STOP not reviewed Problem List - Problems (1) Loose stools Code(s): R19.5 - OTHER FECAL ABNORMALITIES (2) Rectal bleed Code(s): K62.5 - HEMORRHAGE OF ANUS AND RECTUM This patient is new to me today: Yes Date on this admission: 10/17/19 Emergency Visit: Yes ED Registration Date: 10/17/19 Care time: The patient presented to the Emergency Department on the above date and was hospitalized for further evaluation of their emergent condition. Critical Care patient: No - Discharge Referral Referred to [facility] No
--- NOTE | 2019-10-17 12:39 | EKG ---
Test Reason : Blood Pressure : / mmHG Vent. Rate : 073 BPM Atrial Rate : 073 BPM P-R Int : 188 ms QRS Dur : 126 ms QT Int : 418 ms P-R-T Axes : 061 002 016 degrees QTc Int : 460 ms NORMAL SINUS RHYTHM RIGHT BUNDLE BRANCH BLOCK ABNORMAL ECG NO PREVIOUS ECGS AVAILABLE Confirmed by DOMINICK MILLER MD ([id number]) on 10/17/2019 12:39:34 PM Referred By: MD STEWART Confirmed By:DOMINICK MILLER MD
== END 2019-10-17 11:30 | disposition home or self-care (01) | DRG 392 ==
LOC: FER 21:44 → FM/S 10-17 00:09 → UNDOADMIN 10-17 00:15
PROVIDERS: ADMIT Student in an Organized Health Care Education/Training Program; ATTEND Nurse Practitioner Family
DX: R19.7 Diarrhea, unspecified (principal); K62.5 Hemorrhage of anus and rectum; R63.0 Anorexia; R63.4 Abnormal weight loss; I10 Essential (primary) hypertension
CPT/HCPCS: 36415; 71045-TC-FY; 80053; 82272; 82550; 82962; 83735; 84100; 84443; 84484; 85025; 85610; 93005; 99285-25; U0003

== ENCOUNTER 2020-03-08 12:13 | Inpatient (IN) | payer OTHER ==
[2020-03-08 13:00] LABS: BASO % 0.8 % (0-2.0); EOS % 2.8 % (0-4.5); HEMATOCRIT 25.1 % (32.4-45.2); HEMOGLOBIN 7.7 GM/dl (10.7-15.3); LYMPH % 11.1 % (8-40); MCH 21.5 pg (25.7-33.7); MCHC 30.9 g/dl (32.0-36.0); MEAN CELL VOLUME 69.5 fl (80-96); MEAN PLT VOLUME 7.9 fl (7.5-11.1); MONO % 5.1 % (3.8-10.2); NEUT % 80.2 % (42.8-82.8); PLATELET COUNT 359 K/MM3 (134-434); RBC 3.61 M/mm3 (3.60-5.2); RDW 16.5 % (11.6-15.6); WHITE BLOOD COUNT 7.7 K/mm3 (4.0-10.8)
[2020-03-08 13:12] LABS: ACTIVATED PTT 22.9 SECONDS (25.2-36.5)
[2020-03-08 13:16] LABS: INR 1.13 (0.82-1.09); PROTHROMBIN TIME (PATIENT) 12.6 SEC (10.2-13.0)
[2020-03-08 13:25] LABS: ALBUMIN 3.9 g/dl (3.4-5.0); BILIRUBIN,TOTAL 0.4 mg/dl (0.2-1); CALCIUM 10.2 mg/dl (8.5-10); CREATININE 0.6 mg/dl (0.55-1.3); POTASSIUM 4.4 mmol/L (3.5-5.1); TOT PROT 6.3 g/dl (6.4-8.2)
[2020-03-08] MEDS: PANTOPRAZOLE SODIUM 40 MG VIAL IVPUSH SCH ×2 (13:55→21:28)
[2020-03-08] MEDS: SODIUM CHLORIDE 1,000 ML IV SCH (14:00)
[2020-03-08 18:20] VITALS: BMI 24.3
[2020-03-08] MEDS ORDERED: PEG 3350/NA SULF BICARB CL/KCL 4000 ML SOLN.RECON PO ONE (19:00)
[2020-03-08 22:31] LABS: BASO % 1.7 % (0-2.0); EOS % 4.1 % (0-4.5); HEMATOCRIT 26.6 % (32.4-45.2); HEMOGLOBIN 8.5 GM/dl (10.7-15.3); LYMPH % 18.2 % (8-40); MCH 23.2 pg (25.7-33.7); MCHC 31.9 g/dl (32.0-36.0); MEAN CELL VOLUME 72.7 fl (80-96); MEAN PLT VOLUME 8.6 fl (7.5-11.1); MONO % 6.6 % (3.8-10.2); NEUT % 69.4 % (42.8-82.8); PLATELET COUNT 338 K/MM3 (134-434); RBC 3.66 M/mm3 (3.60-5.2); RDW 19.3 % (11.6-15.6); WHITE BLOOD COUNT 5.5 K/mm3 (4.0-10.8)
[2020-03-09] MEDS ORDERED: PROPOFOL 20 ML ONE ×2 (09:15)
[2020-03-09] MEDS ORDERED: LIDOCAINE HCL/PF 2% SDV 5ML VIAL ONE (09:15)
[2020-03-09] MEDS: PANTOPRAZOLE SODIUM 40 MG VIAL IVPUSH SCH ×2 (09:30→21:41)
[2020-03-09 09:35] LABS: ANISOCYTOSIS 2+
[2020-03-09 09:36] LABS: BLOOD UREA NITROGEN 9.3 mg/dL (7-18); CALCIUM 9.2 mg/dL (8.5-10.1); CREATININE 0.5 mg/dL (0.55-1.3); MAGNESIUM 2.1 mg/dL (1.8-2.4)
[2020-03-09 09:36] LABS: PLATELET ESTIMATE ADEQUATE
[2020-03-09 09:37] LABS: ADD RBC MORPHOLOGY YES
[2020-03-09] MEDS: amLODIPine BESYLATE 10 MG TABLET (FP) PO SCH (09:37)
[2020-03-09] MEDS: LISINOPRIL 20 MG TABLET PO SCH (09:37)
[2020-03-09 09:45] LABS: HEMATOCRIT 23.9 % (32.4-45.2); HEMOGLOBIN 7.7 GM/dL (10.7-15.3); MCH 22.8 pg (25.7-33.7); MCHC 32.1 g/dl (32.0-36.0); MEAN CELL VOLUME 71.2 fl (80-96); MEAN PLT VOLUME 8.1 fl (7.5-11.1); PLATELET COUNT 278 K/MM3 (134-434); RBC 3.36 M/mm3 (3.60-5.2); RDW 19.6 % (11.6-15.6); WHITE BLOOD COUNT 4.1 K/mm3 (4.0-10.0)
[2020-03-09 09:56] LABS: POTASSIUM 3.9 mmol/L (3.5-5.1)
[2020-03-09] MEDS ORDERED: PHENYLEPHRINE HCL 10 MG/1 ML SINGLE DOSE VIAL ONE (10:19)
[2020-03-09] MEDS ORDERED: FUROSEMIDE 40 MG/4 ML INJECTABLE VIAL IVPUSH ONE (14:00)
[2020-03-09 14:16] LABS: HEMATOCRIT 26.9 % (32.4-45.2); HEMOGLOBIN 8.3 GM/dl (10.7-15.3); MCH 22.7 pg (25.7-33.7); MCHC 30.9 g/dl (32.0-36.0); MEAN CELL VOLUME 73.6 fl (80-96); MEAN PLT VOLUME 8.3 fl (7.5-11.1); PLATELET COUNT 312 K/MM3 (134-434); RBC 3.65 M/mm3 (3.60-5.2); RDW 18.5 % (11.6-15.6); WHITE BLOOD COUNT 5.2 K/mm3 (4.0-10.8)
[2020-03-09] MEDS: SODIUM CHLORIDE 1,000 ML IV SCH (15:02)
[2020-03-10 08:11] LABS: BASO % 1.3 % (0-2.0); EOS % 4.5 % (0-4.5); HEMATOCRIT 25.2 % (32.4-45.2); HEMOGLOBIN 7.9 GM/dl (10.7-15.3); LYMPH % 16.4 % (8-40); MCH 22.5 pg (25.7-33.7); MCHC 31.3 g/dl (32.0-36.0); MEAN PLT VOLUME 7.7 fl (7.5-11.1); MONO % 10.1 % (3.8-10.2); NEUT % 67.7 % (42.8-82.8); PLATELET COUNT 296 K/MM3 (134-434); RBC 3.49 M/mm3 (3.60-5.2); RDW 18.1 % (11.6-15.6); WHITE BLOOD COUNT 4.5 K/mm3 (4.0-10.8)
[2020-03-10 08:27] LABS: ALBUMIN 3.1 g/dl (3.4-5.0); BILIRUBIN,TOTAL 0.6 mg/dl (0.2-1); CALCIUM 8.9 mg/dl (8.5-10); CREATININE 0.6 mg/dl (0.55-1.3); MAGNESIUM 1.8 mg/dL (1.8-2.4); POTASSIUM 3.8 mmol/L (3.5-5.1)
[2020-03-10] MEDS: LISINOPRIL 20 MG TABLET PO SCH (09:23)
[2020-03-10] MEDS: amLODIPine BESYLATE 10 MG TABLET (FP) PO SCH (09:23)
[2020-03-10] MEDS: PANTOPRAZOLE SODIUM 40 MG VIAL IVPUSH SCH ×2 (09:23→21:42)
[2020-03-11 08:14] LABS: HEMOGLOBIN 9.8 GM/dl (10.7-15.3); MEAN PLT VOLUME 8.1 fl (7.5-11.1)
[2020-03-11 08:24] LABS: ALBUMIN 3.3 g/dl (3.4-5.0); BILIRUBIN,TOTAL 0.8 mg/dl (0.2-1); CALCIUM 9.5 mg/dl (8.5-10); CREATININE 0.6 mg/dl (0.55-1.3); MAGNESIUM 1.9 mg/dL (1.8-2.4); POTASSIUM 4.1 mmol/L (3.5-5.1); TOT PROT 5.2 g/dl (6.4-8.2)
[2020-03-11 08:33] LABS: BASO % 1.9 % (0-2.0); EOS % 8.3 % (0-4.5); HEMATOCRIT 30.9 % (32.4-45.2); LYMPH % 19.4 % (8-40); MCH 23.6 pg (25.7-33.7); MCHC 31.6 g/dl (32.0-36.0); MEAN CELL VOLUME 74.6 fl (80-96); NEUT % 59.4 % (42.8-82.8); PLATELET COUNT 293 K/MM3 (134-434); RBC 4.15 M/mm3 (3.60-5.2); WHITE BLOOD COUNT 4.4 K/mm3 (4.0-10.8)
[2020-03-11 08:58] LABS: ADD RBC MORPHOLOGY YES
[2020-03-11] MEDS: PANTOPRAZOLE SODIUM 40 MG VIAL IVPUSH SCH (10:19)
[2020-03-11] MEDS: LISINOPRIL 20 MG TABLET PO SCH (10:19)
[2020-03-11] MEDS: amLODIPine BESYLATE 10 MG TABLET (FP) PO SCH (10:19)
[2020-03-11 14:24] VITALS: BP 104/48; PULSE 61; TEMP 98.3
== END 2020-03-11 16:54 | disposition home or self-care (01) | DRG 375 ==
LOC: FER 12:13 → FM/S 12:39
PROVIDERS: ADMIT Internal Medicine; ATTEND Nurse Practitioner Acute Care
PROC: 30233N1 Transfusion of Nonautologous Red Blood Cells into Peripheral Vein, Percutaneous Approach (ICD-10-PCS; 2020-03-08)
PROC: 0DBN8ZX Excision of Sigmoid Colon, Via Natural or Artificial Opening Endoscopic, Diagnostic (ICD-10-PCS; principal; 2020-03-09 10:12)
DX: C20 Malignant neoplasm of rectum (principal); K62.5 Hemorrhage of anus and rectum; D62 Acute posthemorrhagic anemia; I10 Essential (primary) hypertension; K62.89 Other specified diseases of anus and rectum; E78.5 Hyperlipidemia, unspecified; K21.9 Gastro-esophageal reflux disease without esophagitis; D50.9 Iron deficiency anemia, unspecified; R19.7 Diarrhea, unspecified; R63.4 Abnormal weight loss; Z68.24 Body mass index [BMI] 24.0-24.9, adult; Z85.42 Personal history of malignant neoplasm of other parts of uterus
CPT/HCPCS: 36415; 36430; 71045-TC-FY; 71250-TC; 74178-TC; 80048; 80053; 82550; 83735; 84484; 85025; 85027; 85610; 85730; 86850; 86900; 86901; 86922; 93005; 97116-GP; 97162-GP; 99285-25; C9803; P9058; Q9967; U0003

== ENCOUNTER 2021-03-31 15:35 | Observation (INO) | payer OTHER ==
[2021-03-31 16:06] VITALS: BMI 23.9
[2021-03-31 18:16] LABS: SARS AG REFLEX COV19 SEND OUT negative (Negative)
[2021-04-01] MEDS ORDERED: PANTOPRAZOLE SODIUM 40 MG VIAL IVPUSH ONE (05:12)
[2021-04-01 07:51] LABS: CALCIUM 9.2 mg/dl (8.5-10); CREATININE 0.5 mg/dl (0.55-1.3)
[2021-04-01 08:27] LABS: BASO % 1.6 % (0-2.0); EOS % 4.6 % (0-4.5); HEMATOCRIT 24.1 % (32.4-45.2); HEMOGLOBIN 7.5 GM/dL (10.7-15.3); LYMPH % 14.3 % (8-40); MEAN CELL VOLUME 63.9 fl (80-96); MEAN PLT VOLUME 8.7 fl (7.5-11.1); MONO % 12.4 % (3.8-10.2); NEUT % 67.1 % (42.8-82.8); PLATELET COUNT 283 10^3/uL (134-434); RBC 3.77 M/mm3 (3.60-5.2); RDW 33.6 % (11.6-15.6); WHITE BLOOD COUNT 4.1 K/mm3 (4.0-10.0)
[2021-04-01 08:38] LABS: MCH 19.8 pg (25.7-33.7)
[2021-04-01] MEDS ORDERED: FUROSEMIDE 40 MG/4 ML INJECTABLE VIAL IVPUSH ONE (12:30)
[2021-04-01 18:10] LABS: SARS-CoV-2 NAA Not Detected (Not Detected)
[2021-04-01 18:21] VITALS: BP 112/60; PULSE 67; TEMP 98.8
[2021-04-01 20:01] LABS: HEMOGLOBIN 9.4 GM/dL (10.7-15.3); MCH 20.9 pg (25.7-33.7); MCHC 31.5 g/dl (32.0-36.0); MEAN CELL VOLUME 66.3 fl (80-96); MEAN PLT VOLUME 8.7 fl (7.5-11.1); PLATELET COUNT 333 10^3/uL (134-434); RBC 4.53 M/mm3 (3.60-5.2); WHITE BLOOD COUNT 6.6 K/mm3 (4.0-10.0)
== END 2021-04-01 19:45 | disposition home or self-care (01) ==
LOC: SUATTDRO 15:35 → FER 15:35 → FM/S 18:07
PROVIDERS: ADMIT Internal Medicine; ATTEND Nurse Practitioner Acute Care
PROC: 3E033GC Introduction of Other Therapeutic Substance into Peripheral Vein, Percutaneous Approach (ICD-10-PCS; principal; 2021-03-31)
PROC: 30233N1 Transfusion of Nonautologous Red Blood Cells into Peripheral Vein, Percutaneous Approach (ICD-10-PCS; 2021-03-31)
DX: D64.9 Anemia, unspecified (principal); D12.5 Benign neoplasm of sigmoid colon; I10 Essential (primary) hypertension; Z85.42 Personal history of malignant neoplasm of other parts of uterus
CPT/HCPCS: 36415; 36430; 80048; 85025; 85027; 86850; 86900; 86901; 86922; 87426; 96374; 96375; 99285-25; C9803; G0378; P9058; U0003; U0005